=== PATIENT | male | born 1990 | race Caucasian/White ===

== ENCOUNTER 2016-11-21 16:40 | Inpatient (IN) | payer SELFPAY ==
[~2016-11-21] VITALS: Ht 182.9 cm; Wt 120.8 kg
[~2016-11-21 16:40] MED LIST: BUPR-192 PO; CLON-276 PO; CLON0.1T12 PO; DEXT20TA2 PO; DIVA250T4 PO; DIVA500T2 PO; Ibuprofen PO; LAMO25TA5 PO; METH10TA2 PO; Methocarbamol PO; Nicotine TD; OLAN5TAB5 PO; RISP0.5T24 PO
[2016-11-21] MEDS ORDERED: LORazepam 2 MG/ML VIAL IV ONE ×2 (17:15→17:45)
[2016-11-21] MEDS ORDERED: ONDANSETRON PF 4 MG/2 ML VIAL. IV ONE (17:15)
[2016-11-21] MEDS ORDERED: IV NORMAL SALINE 1,000ML 1,000 ML IV ONE (17:15)
--- NOTE | 2016-11-21 17:23 | EKG ---
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
--- NOTE | 2016-11-21 17:23 | PHYS DOC ---
Past History Past Medical History: No Pertinent History Past Surgical History: No Surgical History Smoking: Greater than 1 pack/day Alcohol Use: None Drug Use: Methamphetamine Adult General Chief Complaint Chief Complaint: HEAT EXPOSURE HPI HPI Rakan is a 26-year-old male with a history of polysubstance abuse presenting with altered mental status and palpitations. He states that around 9:30 PM last night he used 1/2 g of either bath salts or meth intravenously as well as 30 mg of methadone at same time and since that time he has had palpitations. He also states that he has been very anxious. He does not have other associated symptoms. He does state that he has been suicidal but he is not currently Review of Systems Review of Systems Constitutional: Denies fever or chills. He is very sweaty Eyes: Denies change in visual acuity, redness, or eye pain [] HENT: Denies nasal congestion or sore throat [] Respiratory: Denies cough or shortness of breath [] Cardiovascular: No additional information not addressed in HPI [] GI: Denies abdominal pain, bloody stools or diarrhea. Mild to moderate nausea/ vomiting : Denies dysuria or hematuria [] Musculoskeletal: Denies back pain or joint pain [] Integument: Denies rash or skin lesions [] Neurologic: Denies headache, focal weakness or sensory changes [] Endocrine: Denies polyuria or polydipsia [] Current Medications Current Medications Current Medications Medications (Trade) Dose Ordered Sig/Loraine Start Time Stop Time Status Last Admin Dose Admin Lorazepam (Ativan) 1 mg 1X ONCE 11/21/16 17:15 11/21/16 17:16 DC 11/21/16 17:08 1 MG Ondansetron HCl (Zofran) 4 mg 1X ONCE 11/21/16 17:15 11/21/16 17:16 DC 11/21/16 17:09 4 MG Sodium Chloride 1,000 ml @ 1,000 mls/hr 1X ONCE 11/21/16 17:15 11/21/16 18:14 11/21/16 17:08 1,000 MLS/HR Allergies Allergies Allergies Coded Allergies Type Severity Reaction Last Updated Verified cortisone Allergy Intermediate 03/21/15 Yes Physical Exam Physical Exam Constitutional: Well developed, well nourished, no acute distress, non-toxic appearance. [] HENT: Normocephalic, atraumatic, bilateral external ears normal, oropharynx moist, no oral exudates, nose normal. [] Eyes: PERRLA, EOMI, conjunctiva normal, no discharge. [] Neck: Normal range of motion, no tenderness, supple, no stridor. [] Cardiovascular:Heart rate regular rhythm, no murmur [] Lungs & Thorax: Bilateral breath sounds clear to auscultation [] Abdomen: Bowel sounds normal, soft, no tenderness, no masses, no pulsatile masses. [] Skin: Warm, dry, no erythema, no rash. [] Back: No tenderness, no CVA tenderness. [] Extremities: No tenderness, no cyanosis, no clubbing, ROM intact, no edema. [] Neurologic: Alert and oriented X 3, normal motor function, normal sensory function, no focal deficits noted. [] Psychologic: Affect normal, judgement normal, mood normal. [] Current Patient Data Lab Results Laboratory Tests Test 11/21/16 17:15 White Blood Count 15.8 x10^3/uL Red Blood Count 5.23 x10^6/uL Hemoglobin 15.5 g/dL Hematocrit 44.5 % Mean Corpuscular Volume 85 fL Mean Corpuscular Hemoglobin 30 pg Mean Corpuscular Hemoglobin Concent 35 g/dL Red Cell Distribution Width 13.0 % Platelet Count 298 x10^3/uL Neutrophils (%) (Auto) 71 % Lymphocytes (%) (Auto) 18 % Monocytes (%) (Auto) 10 % Eosinophils (%) (Auto) 1 % Basophils (%) (Auto) 1 % Neutrophils # (Auto) 11.1 x10^3uL Lymphocytes # (Auto) 2.9 x10^3/uL Monocytes # (Auto) 1.5 x10^3/uL Eosinophils # (Auto) 0.1 x10^3/uL Basophils # (Auto) 0.2 x10^3/uL Platelet Estimate Pending Sodium Level 139 mmol/L Potassium Level 3.1 mmol/L Chloride Level 100 mmol/L Carbon Dioxide Level 22 mmol/L Anion Gap 17 Blood Urea Nitrogen 15 mg/dL Creatinine 2.3 mg/dL Estimated GFR (Cockcroft-Gault) 34.0 BUN/Creatinine Ratio 7 Glucose Level 74 mg/dL Calcium Level 9.9 mg/dL Magnesium Level 1.6 mg/dL Total Bilirubin 0.6 mg/dL Aspartate Amino Transf (AST/SGOT) 59 U/L Alanine Aminotransferase (ALT/SGPT) 37 U/L Alkaline Phosphatase 106 U/L Creatine Kinase 1617 U/L Creatine Kinase MB (Mass) 3.4 ng/mL Creatine Kinase MB Relative Index 0.2 % Troponin I Quantitative < 0.017 ng/mL Total Protein 8.6 g/dL Albumin 4.7 g/dL Albumin/Globulin Ratio 1.2 Current Medications Medications (Trade) Dose Ordered Sig/Loraine Route PRN Reason Start Time Stop Time Status Last Admin Dose Admin Ondansetron HCl (Zofran) 4 mg 1X ONCE IV 11/21/16 17:15 11/21/16 17:16 DC 11/21/16 17:09 Sodium Chloride 1,000 ml @ 1,000 mls/hr 1X ONCE IV 11/21/16 17:15 11/21/16 18:14 DC 11/21/16 17:08 Lorazepam (Ativan) 1 mg 1X ONCE IV 11/21/16 17:15 11/21/16 17:16 DC 11/21/16 17:08 Lorazepam (Ativan) 1 mg 1X ONCE IV 11/21/16 17:45 11/21/16 17:46 DC 11/21/16 17:43 Prochlorperazine Edisylate (Compazine) 10 mg 1X ONCE IV 11/21/16 18:00 11/21/16 18:01 DC 11/21/16 18:00 EKG EKG ECG - sinus tachycardia Radiology/Procedures Radiology/Procedures [] Course & Med Decision Making Course & Med Decision Making Rakan has a history as well as recent polysubstance abuse. He has received 2L NS bolus as well as 2 doses of Ativan 1mg. His anxiety seems to be mildly controlled however his tachycardia is persistent Dragon Disclaimer Dragon Disclaimer This chart was dictated in whole or in part using Voice Recognition software in a busy, high-work load, and often noisy Emergency Department environment. It may contain unintended and wholly unrecognized errors or omissions. Departure Departure: Impression: Primary Impression: Polysubstance abuse Additional Impressions: Tachycardia Rhabdomyolysis Dehydration Acute renal failure Disposition: ADMITTED INPATIENT Condition: STABLE Referrals: CHANDRAKANT GRACE DO (PCP) Problem Qualifiers Additional Impressions: Rhabdomyolysis Rhabdomyolysis type: non-traumatic Qualified Codes: M62.82 - Rhabdomyolysis Acute renal failure Acute renal failure type: unspecified Qualified Codes: N17.9 - Acute kidney failure, unspecified JOSIAS NG MD Nov 21, 2016 17:23
[2016-11-21 17:38] LABS: BASO # 0.2 x10^3/uL (0.0-0.2); BASO % 1 % (0-3); EOS # 0.1 x10^3/uL (0.0-0.7); EOS % 1 % (0-3); HEMATOCRIT 44.5 % (39.0-53.0); HEMOGLOBIN 15.5 g/dL (13.0-17.5); LYMPH # 2.9 x10^3/uL (1.0-4.8); LYMPH % 18 % (24-48); MEAN CORPUSCULAR HEMOGLOBIN 30 pg (25-35); MEAN CORPUSCULAR HGB CONC 35 g/dL (31-37); MEAN CORPUSCULAR VOLUME 85 fL (79-100); MONO # 1.5 x10^3/uL (0.0-1.1); MONO % 10 % (0-9); NEUT # 11.1 x10^3uL (1.8-7.7); NEUT % 71 % (31-73); PLATELET COUNT 298 x10^3/uL (140-400); RED BLOOD COUNT 5.23 x10^6/uL (4.30-5.70); WHITE BLOOD COUNT 15.8 x10^3/uL (4.0-11.0)
[2016-11-21 17:59] LABS: ALBUMIN 4.7 g/dL (3.4-5.0); ALBUMIN/GLOBULIN RATIO 1.2 (1.0-1.7); CALCIUM 9.9 mg/dL (8.5-10.1); CREATININE 2.3 mg/dL (0.7-1.3); MAGNESIUM 1.6 mg/dL (1.8-2.4); POTASSIUM 3.1 mmol/L (3.5-5.1); TOTAL BILIRUBIN 0.6 mg/dL (0.2-1.0); TOTAL PROTEIN 8.6 g/dL (6.4-8.2)
[2016-11-21] MEDS ORDERED: PROCHLORPERAZINE 10 MG/2 ML VIAL. IV ONE (18:00)
[2016-11-21] MEDS ORDERED: POTASSIUM CHLORIDE 20 MEQ TABLET.ER. PO ONE (18:45)
[2016-11-21] MEDS ORDERED: ONDANSETRON PF 4 MG/2 ML VIAL. IV PRN (18:45)
[2016-11-21] MEDS ORDERED: MAGNESIUM SULFATE 1GM 100 ML IV ONE (18:45)
[2016-11-21] MEDS ORDERED: IV NORMAL SALINE 1,000 ML BAG IV ONE (18:45)
[2016-11-21] MEDS ORDERED: LORazepam 2 MG/ML VIAL IV PRN (18:45)
[2016-11-21 19:10] LABS: % LYMPHS 17 % (24-48); % MONOS 11 % (0-10); % SEGS 72 % (35-66)
[2016-11-21 19:11] LABS: PLT ESTIMATE ADEQUATE (ADEQUATE)
[2016-11-21 19:44] VITALS: BP 137/59
[2016-11-21 20:44] VITALS: BP 134/59
[2016-11-21 21:44] VITALS: BP 130/50
[2016-11-21 22:44] VITALS: BP 123/62
[2016-11-21 23:51] VITALS: BP 117/57
[2016-11-22] VITALS (21 sets, daily range): BP systolic 94–138; BP diastolic 50–80
[2016-11-22] MEDS: IV NORMAL SALINE 1,000ML 1,000 ML IV SCH ×5 (00:45→18:41)
--- NOTE | 2016-11-22 02:37 | ACF ---
Admission Criteria Forms MUSCULOSKELETAL DISEASE GRG Clinical Indications for Admission to Inpatient Care (Place 'X' for any and all applicable criteria): Hospital admission is needed for appropriate care of the patient because of 1 or more of the following: [ ]I. Fracture, dislocation, or other musculoskeletal injury requiring inpatient care(medical) as indicated by 1 or more of the following(4)(5)(6)(7) [ ]a) Vertebral fracture requiring observation for instability or neurologic compromise (8) [ ]b) Compartment syndrome (proven or cannot be ruled out during observation level of care) (9) [ ]c) Limb-threatening injury [ ]d) Major injury requiring inpatient stabilization such as traction initiation or external fixation before internal fixation or closure of complex or open fracture [ ]e) Major injury requiring inpatient treatment after emergency or observation level care (as appropriate) [ ]f) Severe pain requiring acute inpatient management [ ]g) Injury with suspicion of abuse or neglect (eg., child, dependent elderly) [ ]II. Newly diagnosed or suspected bone, joint, or orthopedic device infection (e.g., osteomyelitis, septic arthritis) needing 1 or more of the following(1)(2)(3) [ ]a) IV antibiotics that cannot be initiated in other than inpatient setting (e.g., patient too unstable or home infusion not available) [ ]b) Device removal or replacement [ ]c) Bone or soft tissue debridement [ ]d) Joint drainage (drain placement or repetitive aspirations) [ ]III. Severe rheumatologic disease (e.g., systemic lupus erythematosus, rheumatoid arthritis) with complications or comorbidities (Also use Optimal Recovery Care Criteria or General Recovery Criteria as appropriate on the basis of predominant condition), including 1 or more of the following( 10)(11)(12)(13) [ ]a) Severe infection (e.g., [employer]ATE infection, sepsis) (14) [ ]b) Respiratory complications, including 1 or more of the following : [ ]i) Pleural effusion with respiratory compromise [ ]ii) Pulmonary hypertension with congestive failure [ ]iii) Respiratory failure [ ]iv) Pulmonary hemorrhage (15) [ ]c) Hematologic disease, including 1 or more of the following: [ ]i) Coagulopathy with bleeding [ ]ii) Thrombosis with hypercoagulable state [ ]iii) Thrombotic thrombocytopenic purpura [ ]d) Cerebritis with seizures, psychosis, or other severe abnormalities [ ]e) Vertebral destruction with monitoring needed for cervical myelopathy& possible respiratory compromise [ ]f) Exacerbation that requires inpatient treatment (e.g., intravenous immunosuppression) (16) [ ]g) Acute renal failure [ ]h) Cerebritis with seizures, psychosis, Altered mental status, or other neurologic abnormalities [ ]i) Pericardial effusion with tamponade [ ]j) Vertebral destruction, with monitoring needed for cervical myelopathy and possible respiratory compromise [ ]IV. Severe vasculitis with complications or comorbidities (Also use Optimal Recovery Care Criteria General Recovery Criteria as appropriate on the basis of predominant condition), including 1 or more of the following(11)(12)(17)(18)(19)(20) [ ]a) Exacerbation that requires inpatient treatment (e.g., intravenous immunosuppression) (19)(21) [ ]b) Pulmonary hemorrhage (15) [ ]c) [employer]ATE vasculitis with seizures, psychosis, Altered mental status that is severe or persistent, or other severe abnormalities (22) [ ]d) Cerebral infarction [ ]e) Gastrointestinal ischemia [ ]f) Gangrene or threatened amputation [ ]g) Renal failure (16) [ ]h) Other significant complications of vasculitis ( eg., tissue or organ ischemia, organ dysfunction ) [ ]V. Severe myopathy as indicated by 1 or more of the following (28)(29) [ ]a) New onset of airway compromise or inability to swallow [ ]b) Respiratory deterioration with observation needed for impending respiratory failure [ ]c) Exacerbation that requires inpatient treatment (e.g., intravenous immunosuppression) [ ]. Severe crystal gout (arthropathy) indicated by 1 or more of the following (23)(24) [ ]a) Severe pain requiring acute inpatient management [ ]b) Exacerbation that requires inpatient treatment (e.g., intravenous treatment) [X]VII.Rhabdomyolysis and 1 or more of the following (25)(26)(27) [X]a) Acute renal failure [ ]b) Need for intravenous hydration after emergency or observation level care (as appropriate) [ ]c) Inability to maintain oral hydration [X]d) Change in mental status [ ]e) Electrolyte abnormality that remains after emergency or observation level care (as appropriate) [ ]VIII Post amputation complication, as indicated by ANY ONE of the following [ ]a) Infection [ ]b) Dehiscence [ ]c) Myodesis failure [ ]IX. Severe pain requiring acute inpatient management due to musculoskeletal condition [ ]X. Musculoskeletal Disease and ALL of the following: [ ]a) Symptom or finding for which emergency and observation care have failed or are not considered appropriate (Use General Criteria: Observation Care as appropriate) [ ]b) Presence of ANY ONE of the following [ ]i) A General Admission Criteria [ ]ii) A Pediatric General Admission Criteria The original [facility] [employer] content created by [facility] [employer] has been revised. The portions of the content which have been revised are identified through the use of italic text or in bold, and [facility] has neither reviewed nor approved the modified material. All other unmodified content is copyright [facility] [employer]. Please see references footnoted in the original [facility] edition 2016 Admission Criteria Met?: Yes BALTA COX Nov 22, 2016 02:37
[2016-11-22 06:35] LABS: BASO # 0.1 x10^3/uL (0.0-0.2); BASO % 1 % (0-3); EOS # 0.3 x10^3/uL (0.0-0.7); EOS % 5 % (0-3); HEMATOCRIT 43.6 % (39.0-53.0); HEMOGLOBIN 14.9 g/dL (13.0-17.5); LYMPH # 3.1 x10^3/uL (1.0-4.8); LYMPH % 42 % (24-48); MEAN CORPUSCULAR HEMOGLOBIN 30 pg (25-35); MEAN CORPUSCULAR HGB CONC 34 g/dL (31-37); MEAN CORPUSCULAR VOLUME 87 fL (79-100); MONO # 0.7 x10^3/uL (0.0-1.1); MONO % 10 % (0-9); NEUT # 3.2 x10^3uL (1.8-7.7); NEUT % 44 % (31-73); PLATELET COUNT 238 x10^3/uL (140-400); RED BLOOD COUNT 5.03 x10^6/uL (4.30-5.70); WHITE BLOOD COUNT 7.4 x10^3/uL (4.0-11.0)
[2016-11-22 06:45] LABS: CALCIUM 8.8 mg/dL (8.5-10.1); CREATININE 1.1 mg/dL (0.7-1.3); GFR 79.7; POTASSIUM 3.8 mmol/L (3.5-5.1)
[2016-11-22 06:45] LABS: BARBITURATES NEG (NEG); BENZODIAZEPINES NEG (NEG); CANNABINOIDS POS (NEG); COCAINE NEG (NEG); METHADONE POS (NEG); OPIATES NEG (NEG); PHENCYCLIDINE NEG (NEG)
[2016-11-22 06:46] LABS: BILIRUBIN,URINE NEG (NEG); CLARITY,URINE CLEAR; COLOR,URINE AMBER; GLUCOSE,URINE NEG (NEG); UROBILINOGEN,URINE 0.2 mg/dL (0.2 mg/dL)
[2016-11-22 06:47] LABS: AMORPHOUS SEDIMENT,UR PRESENT /HPF; BACTERIA,URINE 0 /HPF (0-FEW); HYALINE CASTS, URINE MANY /HPF; NITRITE,URINE NEG (NEG); RBC,URINE RARE /HPF (0-2)
[2016-11-22 06:53] LABS: AMPHETAMINE/METHAMPHETAMINE POS (NEG)
--- NOTE | 2016-11-22 17:10 | PDOC1 ---
History of Present Illness Reason for Visit: heat exposure History of Present Illness Took 1/2 gram pf bath salts or methamphetamin He also took 30mg of methadone Chief Complaint: HEAT EXPOSURE Allergies: Coded Allergies: cortisone (Verified Allergy, Intermediate, 03/21/15) Past Medical History Cardiac: No pertinent hx Pulmonary: No pertinent hx GI: No pertinent hx Heme/Onc: No pertinent hx Hepatobiliary: No pertinent hx Psych: No pertinent hx Musculoskeletal: No pertinent hx Rheumatologic: Other (aches and pains all over) Renal/: No pertinent hx Endocrine: No pertinent hx Past Surgical History: No pertinent history Family History: No pertinent hx Past Social History Smoke: 2 packs per day Alcohol: none Drugs: None Lives: Alone Review of Systems Review Of Systems Fourteen system , review of systems has been reviewed. See HPI for pertinent positives and negative responses, other ferrara all other systems are negative, non pertinent or non contributory Allergies: Coded Allergies: cortisone (Verified Allergy, Intermediate, 03/21/15) Medications Current Medications Ondansetron HCl (Zofran) 4 mg 1X ONCE IV Last administered on 11/21/16 17:09 ; Start 11/21/16 at 17:15; Stop 11/21/16 at 17:16; Status DC Sodium Chloride 1,000 ml @ 1,000 mls/hr 1X ONCE IV Last administered on 17:08; Start 11/21/16 at 17:15; Stop 11/21/16 at 18:14; Status DC Lorazepam (Ativan) 1 mg 1X ONCE IV Last administered on 11/21/16 17:08; Start 11/21/16 at 17:15; Stop 11/21/16 at 17:16; Status DC Lorazepam (Ativan) 1 mg 1X ONCE IV Last administered on 11/21/16 17:43; Start 11/21/16 at 17:45; Stop 11/21/16 at 17:46; Status DC Prochlorperazine Edisylate (Compazine) 10 mg 1X ONCE IV Last administered on 18:00; Start 11/21/16 at 18:00; Stop 11/21/16 at 18:01; Status DC Potassium Chloride (Klor-Con) 40 meq 1X ONCE PO Last administered on 18:45; Start 11/21/16 at 18:45; Stop 11/21/16 at 18:46; Status DC Magnesium Sulfate/ Dextrose 100 ml @ 100 mls/hr 1X ONCE IV Last administered on 11/21/16 18:45; Start 11/21/16 at 18:45; Stop 11/21/16 at 19:47; Status DC Sodium Chloride (Iv Sodium Chloride 0.9% 1,000ml) 1,000 ml 1X ONCE IV Last administered on 11/21/16 18:45; Start 11/21/16 at 18:45; Stop 11/21/16 at 18:46 ; Status DC Ondansetron HCl (Zofran) 4 mg PRN Q4HRS PRN IV NAUSEA/VOMITING; Start 11/21/16 at 18:45; Stop 11/22/16 at 18:44 Sodium Chloride 1,000 ml @ 150 mls/hr Q6H40M IV Last administered on 12:47; Start 11/21/16 at 18:31; Stop 11/22/16 at 18:30 Lorazepam (Ativan) 0.5 mg PRN Q4HRS PRN IV aggitation; Start 11/21/16 at 18:45 Active Scripts Active Reported Lamictal (Lamotrigine) 25 Mg Tablet Unknown Dose PO BID Methadone Hcl 10 Mg Tablet 2 Tab PO BID Depakote (Divalproex Sodium) 500 Mg Tablet.dr 1 Tab PO TID 0 Days Exam Vital Signs Vital Signs Date Time Temp Pulse Resp B/P (MAP) Pulse Ox O2 Delivery O2 Flow Rate FiO2 11/22/16 16:01 98.3 11/22/16 14:45 68 20 107/52 (70) 98 Room Air 11/21/16 22:44 2.0 General Appearance: Alert, Oriented X3, Cooperative, No acute distress HEENT: Atraumatic, PERRLA, EOMI Respiratory: Clear to auscultation, Normal air movement Heart: Regular rate, Normal S1, Normal S2, No murmurs, Rubs Abdominal: Normal bowel sounds, No tenderness Extremities: No cyanosis, No edema, No tenderness/swelling Skin: No rashes, No breakdown Neuro: Normal gait, Normal speech, Other (altered mental status) Assessment/Plan Assessment/Plan Heat exposure Salt bath vs meth methadone COURSE Allergies Coded Allergies Type Severity Reaction Last Updated Verified cortisone Allergy Intermediate 03/21/15 Yes Laboratory Tests Test 11/21/16 17:15 11/22/16 05:30 11/22/16 05:36 White Blood Count 15.8 x10^3/uL (4.0-11.0) 7.4 x10^3/uL (4.0-11.0) Red Blood Count 5.23 x10^6/uL (4.30-5.70) 5.03 x10^6/uL (4.30-5.70) Hemoglobin 15.5 g/dL (13.0-17.5) 14.9 g/dL (13.0-17.5) Hematocrit 44.5 % (39.0-53.0) 43.6 % (39.0-53.0) Mean Corpuscular Volume 85 fL (79-100) 87 fL (79-100) Mean Corpuscular Hemoglobin 30 pg (25-35) 30 pg (25-35) Mean Corpuscular Hemoglobin Concent 35 g/dL (31-37) 34 g/dL (31-37) Red Cell Distribution Width 13.0 % (11.5-14.5) 13.0 % (11.5-14.5) Platelet Count 298 x10^3/uL (140-400) 238 x10^3/uL (140-400) Neutrophils (%) (Auto) 71 % (31-73) 44 % (31-73) Lymphocytes (%) (Auto) 18 % (24-48) 42 % (24-48) Monocytes (%) (Auto) 10 % (0-9) 10 % (0-9) Eosinophils (%) (Auto) 1 % (0-3) 5 % (0-3) Basophils (%) (Auto) 1 % (0-3) 1 % (0-3) Neutrophils # (Auto) 11.1 x10^3uL (1.8-7.7) 3.2 x10^3uL (1.8-7.7) Lymphocytes # (Auto) 2.9 x10^3/uL (1.0-4.8) 3.1 x10^3/uL (1.0-4.8) Monocytes # (Auto) 1.5 x10^3/uL (0.0-1.1) 0.7 x10^3/uL (0.0-1.1) Eosinophils # (Auto) 0.1 x10^3/uL (0.0-0.7) 0.3 x10^3/uL (0.0-0.7) Basophils # (Auto) 0.2 x10^3/uL (0.0-0.2) 0.1 x10^3/uL (0.0-0.2) Segmented Neutrophils % 72 % (35-66) Lymphocytes % 17 % (24-48) Monocytes % 11 % (0-10) Platelet Estimate Adequate (ADEQUATE) Sodium Level 139 mmol/L (136-145) 142 mmol/L (136-145) Potassium Level 3.1 mmol/L (3.5-5.1) 3.8 mmol/L (3.5-5.1) Chloride Level 100 mmol/L (98-107) 106 mmol/L (98-107) Carbon Dioxide Level 22 mmol/L (21-32) 25 mmol/L (21-32) Anion Gap 17 (6-14) 11 (6-14) Blood Urea Nitrogen 15 mg/dL (8-26) 12 mg/dL (8-26) Creatinine 2.3 mg/dL (0.7-1.3) 1.1 mg/dL (0.7-1.3) Estimated GFR (Cockcroft-Gault) 34.0 79.7 BUN/Creatinine Ratio 7 (6-20) Glucose Level 74 mg/dL (70-99) 75 mg/dL (70-99) Calcium Level 9.9 mg/dL (8.5-10.1) 8.8 mg/dL (8.5-10.1) Magnesium Level 1.6 mg/dL (1.8-2.4) Total Bilirubin 0.6 mg/dL (0.2-1.0) Aspartate Amino Transf (AST/SGOT) 59 U/L (15-37) Alanine Aminotransferase (ALT/SGPT) 37 U/L (16-63) Alkaline Phosphatase 106 U/L (46-116) Creatine Kinase 1617 U/L (39-308) 1083 U/L (39-308) Creatine Kinase MB (Mass) 3.4 ng/mL (0.0-3.6) Creatine Kinase MB Relative Index 0.2 % (0-4) Troponin I Quantitative < 0.017 ng/mL (0-0.055) Total Protein 8.6 g/dL (6.4-8.2) Albumin 4.7 g/dL (3.4-5.0) Albumin/Globulin Ratio 1.2 (1.0-1.7) Urine Collection Type Unknown Urine Color Natalya Urine Clarity Clear Urine pH 5.5 Urine Specific [place] >=1.030 Urine Protein 30 mg/dl (NEG-TRACE) Urine Glucose (UA) Neg mg/dL (NEG) Urine Ketones (Stick) 15 mg/dL (NEG) Urine Blood Neg (NEG) Urine Nitrite Neg (NEG) Urine Bilirubin Neg (NEG) Urine Urobilinogen Dipstick 0.2 mg/dL (0.2 mg/dL) Urine Leukocyte Esterase Neg (NEG) Urine RBC Rare /HPF (0-2) Urine WBC 1-4 /HPF (0-4) Urine Squamous Epithelial Cells None /LPF Urine Amorphous Sediment Present /HPF Urine Bacteria 0 /HPF (0-FEW) Urine Hyaline Casts Many /HPF Urine Mucus Mod /LPF Urine Opiates Screen Neg (NEG) Urine Methadone Screen Pos (NEG) Urine Barbiturates Neg (NEG) Urine Phencyclidine Screen Neg (NEG) Urine Amphetamine/Methamphetamine Pos (NEG) Urine Benzodiazepines Screen Neg (NEG) Urine Cocaine Screen Neg (NEG) Urine Cannabinoids Screen Pos (NEG) Urine Ethyl Alcohol Neg (NEG) Current Medications Medications (Trade) Dose Ordered Sig/Loraine Route PRN Reason Start Time Stop Time Status Last Admin Dose Admin Ondansetron HCl (Zofran) 4 mg 1X ONCE IV 11/21/16 17:15 11/21/16 17:16 DC 11/21/16 17:09 Sodium Chloride 1,000 ml @ 1,000 mls/hr 1X ONCE IV 11/21/16 17:15 11/21/16 18:14 DC 11/21/16 17:08 Lorazepam (Ativan) 1 mg 1X ONCE IV 11/21/16 17:15 11/21/16 17:16 DC 11/21/16 17:08 Lorazepam (Ativan) 1 mg 1X ONCE IV 11/21/16 17:45 11/21/16 17:46 DC 11/21/16 17:43 Prochlorperazine Edisylate (Compazine) 10 mg 1X ONCE IV 11/21/16 18:00 11/21/16 18:01 DC 11/21/16 18:00 Potassium Chloride (Klor-Con) 40 meq 1X ONCE PO 11/21/16 18:45 11/21/16 18:46 DC 11/21/16 18:45 Magnesium Sulfate/ Dextrose 100 ml @ 100 mls/hr 1X ONCE IV 11/21/16 18:45 11/21/16 19:47 DC 11/21/16 18:45 Sodium Chloride (Iv Sodium Chloride 0.9% 1,000ml) 1,000 ml 1X ONCE IV 11/21/16 18:45 11/21/16 18:46 DC 11/21/16 18:45 Ondansetron HCl (Zofran) 4 mg PRN Q4HRS PRN IV NAUSEA/VOMITING 11/21/16 18:45 11/22/16 18:44 Sodium Chloride 1,000 ml @ 150 mls/hr Q6H40M IV 11/21/16 18:31 11/22/16 18:30 11/22/16 12:47 Lorazepam (Ativan) 0.5 mg PRN Q4HRS PRN IV aggitation 11/21/16 18:45 I & O 11/22/16 00:00 Intake Total 0 ml Balance 0 ml Orders Procedure Category Date Status Time Vital Signs ER 11/21/16 Transmitted 17:18 Bp Monitoring ER 11/21/16 Transmitted 17:18 Credentialing Manager ER 11/21/16 Transmitted 17:18 Temperature Monitoring ER 11/21/16 Transmitted 17:18 Cbc W [employer] LAB 11/21/16 Complete 17:18 Ua, Cult If Indicated LAB 11/21/16 Complete 17:18 Drugs Of Abuse Ur LAB 11/21/16 Complete 17:18 12 Lead Ekg EKG 11/21/16 Complete 17:18 Ckmb Isoenzymes LAB 11/21/16 Complete 17:18 Troponin I LAB 11/21/16 Complete 17:18 Magnesium LAB 11/21/16 Complete 17:18 Comprehensive LAB 11/21/16 Complete Metabolic Panel 17:18 Lorazepam (Ativan) PHA 11/21/16 Complete 17:45 Manual Differential LAB 11/21/16 Complete 17:15 Prochlorperazine PHA 11/21/16 Complete (Compazine) 18:00 Potassium Chloride PHA 11/21/16 Complete (Klor-Con) 18:45 Magnesium Sulfate 1gm PHA 11/21/16 Complete (Magnesium Sulfate 18:45 Iv Normal Saline PHA 11/21/16 Complete 1,000ml (Iv Sodium 18:45 Ed Bridge Order ADT 11/21/16 Transmitted 18:31 Code Status CODE 11/21/16 Transmitted 18:31 Vital Signs, Per LEENA 11/21/16 In Process Protocol 18:31 Regular DIET 11/22/16 Transmitted Breakfast Ambulate Ad Eboni LEENA 11/21/16 In Process 18:31 Fall Precautions LEENA 11/21/16 In Process 18:31 Cbc W [employer]od[employer] LAB 11/22/16 Complete 06:00 Basic Metabolic Panel LAB 11/22/16 Complete 06:00 Ondansetron Pf PHA 11/21/16 In Process (Zofran) 18:45 Iv Normal Saline PHA 11/21/16 In Process 1,000ml (Iv Sodium 18:31 Lorazepam (Ativan) PHA 11/21/16 In Process 18:45 Apply Ulisses Stockings LEENA 11/21/16 In Process And Jc Wr 19:14 Pneumatic Compression LEENA 11/21/16 In Process Device 19:14 Mrsa By Pcr LAB 11/21/16 In Process 19:24 Admit Orders ADT 11/21/16 Transmitted Case Management CM1 11/21/16 Transmitted Referral Creatine Kinase LAB 11/22/16 Complete 06:58 Hemogram LAB 11/23/16 Verified 05:00 Comprehensive LAB 11/23/16 Verified Metabolic Panel 05:00 Creatine Kinase LAB 11/23/16 Verified 05:00 Vital Signs Date Time Temp Pulse Resp B/P (MAP) Pulse Ox O2 Delivery O2 Flow Rate FiO2 11/22/16 16:01 98.3 11/22/16 14:45 68 20 107/52 (70) 98 Room Air 11/21/16 22:44 2.0 GILBERT LOPEZ MD Nov 22, 2016 17:10
--- NOTE | 2016-11-22 17:16 | PDOC ---
SUBJECTIVE: sleeping most of the day did c/o aches and pains all over OBJECTIVE: Problems: Problems Medical Problems: (1) Acute renal failure Status: Acute (2) Dehydration Status: Acute (3) Polysubstance abuse Status: Acute (4) Rhabdomyolysis Status: Acute (5) Tachycardia Status: Acute Resting flat in NAD Slept most of the day still c/o generalized aches and pain Vital Signs: Vital Signs Date Time Temp Pulse Resp B/P (MAP) Pulse Ox O2 Delivery O2 Flow Rate FiO2 11/22/16 16:01 98.3 11/22/16 14:45 68 20 107/52 (70) 98 Room Air 11/21/16 22:44 2.0 I & O Intake and Output 11/22/16 07:00 Intake Total 2003 ml Output Total 450 ml Balance 1553 ml Intake Oral 420 ml IV Total 1583 ml Output Urine Total 450 ml Labs: Laboratory Tests Test 11/21/16 17:15 11/22/16 05:30 11/22/16 05:36 White Blood Count 15.8 x10^3/uL (4.0-11.0) 7.4 x10^3/uL (4.0-11.0) Red Blood Count 5.23 x10^6/uL (4.30-5.70) 5.03 x10^6/uL (4.30-5.70) Hemoglobin 15.5 g/dL (13.0-17.5) 14.9 g/dL (13.0-17.5) Hematocrit 44.5 % (39.0-53.0) 43.6 % (39.0-53.0) Mean Corpuscular Volume 85 fL (79-100) 87 fL (79-100) Mean Corpuscular Hemoglobin 30 pg (25-35) 30 pg (25-35) Mean Corpuscular Hemoglobin Concent 35 g/dL (31-37) 34 g/dL (31-37) Red Cell Distribution Width 13.0 % (11.5-14.5) 13.0 % (11.5-14.5) Platelet Count 298 x10^3/uL (140-400) 238 x10^3/uL (140-400) Neutrophils (%) (Auto) 71 % (31-73) 44 % (31-73) Lymphocytes (%) (Auto) 18 % (24-48) 42 % (24-48) Monocytes (%) (Auto) 10 % (0-9) 10 % (0-9) Eosinophils (%) (Auto) 1 % (0-3) 5 % (0-3) Basophils (%) (Auto) 1 % (0-3) 1 % (0-3) Neutrophils # (Auto) 11.1 x10^3uL (1.8-7.7) 3.2 x10^3uL (1.8-7.7) Lymphocytes # (Auto) 2.9 x10^3/uL (1.0-4.8) 3.1 x10^3/uL (1.0-4.8) Monocytes # (Auto) 1.5 x10^3/uL (0.0-1.1) 0.7 x10^3/uL (0.0-1.1) Eosinophils # (Auto) 0.1 x10^3/uL (0.0-0.7) 0.3 x10^3/uL (0.0-0.7) Basophils # (Auto) 0.2 x10^3/uL (0.0-0.2) 0.1 x10^3/uL (0.0-0.2) Segmented Neutrophils % 72 % (35-66) Lymphocytes % 17 % (24-48) Monocytes % 11 % (0-10) Platelet Estimate Adequate (ADEQUATE) Sodium Level 139 mmol/L (136-145) 142 mmol/L (136-145) Potassium Level 3.1 mmol/L (3.5-5.1) 3.8 mmol/L (3.5-5.1) Chloride Level 100 mmol/L (98-107) 106 mmol/L (98-107) Carbon Dioxide Level 22 mmol/L (21-32) 25 mmol/L (21-32) Anion Gap 17 (6-14) 11 (6-14) Blood Urea Nitrogen 15 mg/dL (8-26) 12 mg/dL (8-26) Creatinine 2.3 mg/dL (0.7-1.3) 1.1 mg/dL (0.7-1.3) Estimated GFR (Cockcroft-Gault) 34.0 79.7 BUN/Creatinine Ratio 7 (6-20) Glucose Level 74 mg/dL (70-99) 75 mg/dL (70-99) Calcium Level 9.9 mg/dL (8.5-10.1) 8.8 mg/dL (8.5-10.1) Magnesium Level 1.6 mg/dL (1.8-2.4) Total Bilirubin 0.6 mg/dL (0.2-1.0) Aspartate Amino Transf (AST/SGOT) 59 U/L (15-37) Alanine Aminotransferase (ALT/SGPT) 37 U/L (16-63) Alkaline Phosphatase 106 U/L (46-116) Creatine Kinase 1617 U/L (39-308) 1083 U/L (39-308) Creatine Kinase MB (Mass) 3.4 ng/mL (0.0-3.6) Creatine Kinase MB Relative Index 0.2 % (0-4) Troponin I Quantitative < 0.017 ng/mL (0-0.055) Total Protein 8.6 g/dL (6.4-8.2) Albumin 4.7 g/dL (3.4-5.0) Albumin/Globulin Ratio 1.2 (1.0-1.7) Urine Collection Type Unknown Urine Color Natalya Urine Clarity Clear Urine pH 5.5 Urine Specific [place] >=1.030 Urine Protein 30 mg/dl (NEG-TRACE) Urine Glucose (UA) Neg mg/dL (NEG) Urine Ketones (Stick) 15 mg/dL (NEG) Urine Blood Neg (NEG) Urine Nitrite Neg (NEG) Urine Bilirubin Neg (NEG) Urine Urobilinogen Dipstick 0.2 mg/dL (0.2 mg/dL) Urine Leukocyte Esterase Neg (NEG) Urine RBC Rare /HPF (0-2) Urine WBC 1-4 /HPF (0-4) Urine Squamous Epithelial Cells None /LPF Urine Amorphous Sediment Present /HPF Urine Bacteria 0 /HPF (0-FEW) Urine Hyaline Casts Many /HPF Urine Mucus Mod /LPF Urine Opiates Screen Neg (NEG) Urine Methadone Screen Pos (NEG) Urine Barbiturates Neg (NEG) Urine Phencyclidine Screen Neg (NEG) Urine Amphetamine/Methamphetamine Pos (NEG) Urine Benzodiazepines Screen Neg (NEG) Urine Cocaine Screen Neg (NEG) Urine Cannabinoids Screen Pos (NEG) Urine Ethyl Alcohol Neg (NEG) Physical Exam: Vitals stable HEENT NC/AT CVS S1 & S2 normal Chest CTA 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
[2016-11-22] MEDS: NICOTINE 21MG PATCH. TD SCH (17:25)
[2016-11-22] MEDS: LORazepam 2 MG/ML VIAL IV PRN ×3 (17:25→21:20)
[2016-11-22] MEDS ORDERED: DIVA500T2 PO (17:44)
[2016-11-22] MEDS ORDERED: LAMO25TA5 PO (17:44)
[2016-11-22] MEDS ORDERED: RISP2TAB3 PO (17:44)
[2016-11-22] MEDS ORDERED: DIVA500T4 PO (17:44)
[2016-11-22] MEDS ORDERED: LORazepam 2 MG/ML VIAL IV PRN (18:15)
[2016-11-22] MEDS ORDERED: DIVALPROEX SODIUM 250 MG TABLET.DR. PO SCH (21:00)
[2016-11-22] MEDS: risperiDONE 2 MG TABLET. PO SCH (21:05)
[2016-11-22] MEDS ORDERED: ONDANSETRON PF 4 MG/2 ML VIAL. ONE (21:07)
[2016-11-23] VITALS (9 sets, daily range): BP systolic 84–129; BP diastolic 48–64
[2016-11-23] MEDS: IV NORMAL SALINE 1,000ML 1,000 ML IV SCH ×2 (02:33→07:44)
[2016-11-23] MEDS ORDERED: ONDANSETRON PF 4 MG/2 ML VIAL. IV PRN (02:45)
[2016-11-23] MEDS: LORazepam 2 MG/ML VIAL IV PRN (02:53)
[2016-11-23 06:31] LABS: BASO # 0.1 x10^3/uL (0.0-0.2); BASO % 1 % (0-3); EOS # 0.3 x10^3/uL (0.0-0.7); EOS % 3 % (0-3); HEMATOCRIT 39.1 % (39.0-53.0); HEMOGLOBIN 13.3 g/dL (13.0-17.5); LYMPH # 2.4 x10^3/uL (1.0-4.8); LYMPH % 28 % (24-48); MEAN CORPUSCULAR HEMOGLOBIN 30 pg (25-35); MEAN CORPUSCULAR HGB CONC 34 g/dL (31-37); MEAN CORPUSCULAR VOLUME 87 fL (79-100); MONO # 0.6 x10^3/uL (0.0-1.1); MONO % 7 % (0-9); NEUT # 5.3 x10^3uL (1.8-7.7); NEUT % 61 % (31-73); PLATELET COUNT 189 x10^3/uL (140-400); RED BLOOD COUNT 4.49 x10^6/uL (4.30-5.70); RED CELL DISTRIBUTION WIDTH 12.9 % (11.5-14.5); WHITE BLOOD COUNT 8.6 x10^3/uL (4.0-11.0)
[2016-11-23 06:46] LABS: ALBUMIN 2.9 g/dL (3.4-5.0); ALBUMIN/GLOBULIN RATIO 0.9 (1.0-1.7); CALCIUM 8.1 mg/dL (8.5-10.1); CREATININE 0.8 mg/dL (0.7-1.3); GFR 115.1; POTASSIUM 3.7 mmol/L (3.5-5.1); TOTAL BILIRUBIN 0.3 mg/dL (0.2-1.0)
[2016-11-23] MEDS: risperiDONE 2 MG TABLET. PO SCH (08:46)
[2016-11-23] MEDS: NICOTINE 21MG PATCH. TD SCH (08:46)
[2016-11-23] MEDS ORDERED: DIVALPROEX ER 500 MG TAB.ER.24H PO SCH (09:00)
--- NOTE | 2016-11-23 14:58 | PDOC3 ---
Discharge Summary Visit Information Date of Admission: Nov 21, 2016 Date of Discharge: Nov 23, 2016 Admitting Diagnosis: Dehydration MODESTO, RHABDOMYLYSIS Admitting Diagnosis Comments Polysubstance abuse Rhabdomyolysis MODESTO Hypokalemia Final Diagnosis Problems Medical Problems: (1) Acute renal failure Status: Acute (2) Dehydration Status: Acute (3) Polysubstance abuse Status: Acute (4) Rhabdomyolysis Status: Acute (5) Tachycardia Status: Acute Problems: Brief Hospital Course Allergies Allergies Coded Allergies Type Severity Reaction Last Updated Verified cortisone Allergy Intermediate 03/21/15 Yes Vital Signs Vital Signs Date Time Temp Pulse Resp B/P (MAP) Pulse Ox O2 Delivery O2 Flow Rate FiO2 11/23/16 08:55 Room Air 11/23/16 08:45 78 20 129/58 (81) 11/23/16 05:00 98.1 98 11/21/16 22:44 2.0 Lab Results Laboratory Tests Test 11/21/16 17:15 11/21/16 19:50 11/22/16 05:30 11/22/16 05:36 White Blood Count 15.8 x10^3/uL (4.0-11.0) 7.4 x10^3/uL (4.0-11.0) Red Blood Count 5.23 x10^6/uL (4.30-5.70) 5.03 x10^6/uL (4.30-5.70) Hemoglobin 15.5 g/dL (13.0-17.5) 14.9 g/dL (13.0-17.5) Hematocrit 44.5 % (39.0-53.0) 43.6 % (39.0-53.0) Mean Corpuscular Volume 85 fL (79-100) 87 fL (79-100) Mean Corpuscular Hemoglobin 30 pg (25-35) 30 pg (25-35) Mean Corpuscular Hemoglobin Concent 35 g/dL (31-37) 34 g/dL (31-37) Red Cell Distribution Width 13.0 % (11.5-14.5) 13.0 % (11.5-14.5) Platelet Count 298 x10^3/uL (140-400) 238 x10^3/uL (140-400) Neutrophils (%) (Auto) 71 % (31-73) 44 % (31-73) Lymphocytes (%) (Auto) 18 % (24-48) 42 % (24-48) Monocytes (%) (Auto) 10 % (0-9) 10 % (0-9) Eosinophils (%) (Auto) 1 % (0-3) 5 % (0-3) Basophils (%) (Auto) 1 % (0-3) 1 % (0-3) Neutrophils # (Auto) 11.1 x10^3uL (1.8-7.7) 3.2 x10^3uL (1.8-7.7) Lymphocytes # (Auto) 2.9 x10^3/uL (1.0-4.8) 3.1 x10^3/uL (1.0-4.8) Monocytes # (Auto) 1.5 x10^3/uL (0.0-1.1) 0.7 x10^3/uL (0.0-1.1) Eosinophils # (Auto) 0.1 x10^3/uL (0.0-0.7) 0.3 x10^3/uL (0.0-0.7) Basophils # (Auto) 0.2 x10^3/uL (0.0-0.2) 0.1 x10^3/uL (0.0-0.2) Segmented Neutrophils % 72 % (35-66) Lymphocytes % 17 % (24-48) Monocytes % 11 % (0-10) Platelet Estimate Adequate (ADEQUATE) Sodium Level 139 mmol/L (136-145) 142 mmol/L (136-145) Potassium Level 3.1 mmol/L (3.5-5.1) 3.8 mmol/L (3.5-5.1) Chloride Level 100 mmol/L (98-107) 106 mmol/L (98-107) Carbon Dioxide Level 22 mmol/L (21-32) 25 mmol/L (21-32) Anion Gap 17 (6-14) 11 (6-14) Blood Urea Nitrogen 15 mg/dL (8-26) 12 mg/dL (8-26) Creatinine 2.3 mg/dL (0.7-1.3) 1.1 mg/dL (0.7-1.3) Estimated GFR (Cockcroft-Gault) 34.0 79.7 BUN/Creatinine Ratio 7 (6-20) Glucose Level 74 mg/dL (70-99) 75 mg/dL (70-99) Calcium Level 9.9 mg/dL (8.5-10.1) 8.8 mg/dL (8.5-10.1) Magnesium Level 1.6 mg/dL (1.8-2.4) Total Bilirubin 0.6 mg/dL (0.2-1.0) Aspartate Amino Transf (AST/SGOT) 59 U/L (15-37) Alanine Aminotransferase (ALT/SGPT) 37 U/L (16-63) Alkaline Phosphatase 106 U/L (46-116) Creatine Kinase 1617 U/L (39-308) 1083 U/L (39-308) Creatine Kinase MB (Mass) 3.4 ng/mL (0.0-3.6) Creatine Kinase MB Relative Index 0.2 % (0-4) Troponin I Quantitative < 0.017 ng/mL (0-0.055) Total Protein 8.6 g/dL (6.4-8.2) Albumin 4.7 g/dL (3.4-5.0) Albumin/Globulin Ratio 1.2 (1.0-1.7) Nasal Screen MRSA (PCR) Negative (Negative) Urine Collection Type Unknown Urine Color Natalya Urine Clarity Clear Urine pH 5.5 Urine Specific [place] >=1.030 Urine Protein 30 mg/dl (NEG-TRACE) Urine Glucose (UA) Neg mg/dL (NEG) Urine Ketones (Stick) 15 mg/dL (NEG) Urine Blood Neg (NEG) Urine Nitrite Neg (NEG) Urine Bilirubin Neg (NEG) Urine Urobilinogen Dipstick 0.2 mg/dL (0.2 mg/dL) Urine Leukocyte Esterase Neg (NEG) Urine RBC Rare /HPF (0-2) Urine WBC 1-4 /HPF (0-4) Urine Squamous Epithelial Cells None /LPF Urine Amorphous Sediment Present /HPF Urine Bacteria 0 /HPF (0-FEW) Urine Hyaline Casts Many /HPF Urine Mucus Mod /LPF Urine Opiates Screen Neg (NEG) Urine Methadone Screen Pos (NEG) Urine Barbiturates Neg (NEG) Urine Phencyclidine Screen Neg (NEG) Urine Amphetamine/Methamphetamine Pos (NEG) Urine Benzodiazepines Screen Neg (NEG) Urine Cocaine Screen Neg (NEG) Urine Cannabinoids Screen Pos (NEG) Urine Ethyl Alcohol Neg (NEG) Test 11/23/16 05:34 White Blood Count 8.6 x10^3/uL (4.0-11.0) Red Blood Count 4.49 x10^6/uL (4.30-5.70) Hemoglobin 13.3 g/dL (13.0-17.5) Hematocrit 39.1 % (39.0-53.0) Mean Corpuscular Volume 87 fL (79-100) Mean Corpuscular Hemoglobin 30 pg (25-35) Mean Corpuscular Hemoglobin Concent 34 g/dL (31-37) Red Cell Distribution Width 12.9 % (11.5-14.5) Platelet Count 189 x10^3/uL (140-400) Neutrophils (%) (Auto) 61 % (31-73) Lymphocytes (%) (Auto) 28 % (24-48) Monocytes (%) (Auto) 7 % (0-9) Eosinophils (%) (Auto) 3 % (0-3) Basophils (%) (Auto) 1 % (0-3) Neutrophils # (Auto) 5.3 x10^3uL (1.8-7.7) Lymphocytes # (Auto) 2.4 x10^3/uL (1.0-4.8) Monocytes # (Auto) 0.6 x10^3/uL (0.0-1.1) Eosinophils # (Auto) 0.3 x10^3/uL (0.0-0.7) Basophils # (Auto) 0.1 x10^3/uL (0.0-0.2) Sodium Level 144 mmol/L (136-145) Potassium Level 3.7 mmol/L (3.5-5.1) Chloride Level 109 mmol/L (98-107) Carbon Dioxide Level 27 mmol/L (21-32) Anion Gap 8 (6-14) Blood Urea Nitrogen 11 mg/dL (8-26) Creatinine 0.8 mg/dL (0.7-1.3) Estimated GFR (Cockcroft-Gault) 115.1 BUN/Creatinine Ratio 14 (6-20) Glucose Level 105 mg/dL (70-99) Calcium Level 8.1 mg/dL (8.5-10.1) Magnesium Level 1.9 mg/dL (1.8-2.4) Total Bilirubin 0.3 mg/dL (0.2-1.0) Aspartate Amino Transf (AST/SGOT) 34 U/L (15-37) Alanine Aminotransferase (ALT/SGPT) 28 U/L (16-63) Alkaline Phosphatase 77 U/L (46-116) Creatine Kinase 609 U/L (39-308) Total Protein 6.0 g/dL (6.4-8.2) Albumin 2.9 g/dL (3.4-5.0) Albumin/Globulin Ratio 0.9 (1.0-1.7) Brief Hospital Course Mr. Levy is a 26 old who presented after injecting half a gram bath salt vs amphetamine and taking 30 mg of methadone He was found to hypokalemic , dehydrated with MODESTO and elevated CK He was treated aggressively with I V Fluids and his potassium was replaced All his labs have normalized or alomost normalized and he was discharged home to continue on his home medications Discharge Information Condition at Discharge: Improved Follow Up: As Needed Disposition/Orders: D/C to Home Dischare Medications Current Medications Ondansetron HCl (Zofran) 4 mg 1X ONCE IV Last administered on 11/21/16 17:09 ; Start 11/21/16 at 17:15; Stop 11/21/16 at 17:16; Status DC Sodium Chloride 1,000 ml @ 1,000 mls/hr 1X ONCE IV Last administered on 17:08; Start 11/21/16 at 17:15; Stop 11/21/16 at 18:14; Status DC Lorazepam (Ativan) 1 mg 1X ONCE IV Last administered on 11/21/16 17:08; Start 11/21/16 at 17:15; Stop 11/21/16 at 17:16; Status DC Lorazepam (Ativan) 1 mg 1X ONCE IV Last administered on 11/21/16 17:43; Start 11/21/16 at 17:45; Stop 11/21/16 at 17:46; Status DC Prochlorperazine Edisylate (Compazine) 10 mg 1X ONCE IV Last administered on 18:00; Start 11/21/16 at 18:00; Stop 11/21/16 at 18:01; Status DC Potassium Chloride (Klor-Con) 40 meq 1X ONCE PO Last administered on 18:45; Start 11/21/16 at 18:45; Stop 11/21/16 at 18:46; Status DC Magnesium Sulfate/ Dextrose 100 ml @ 100 mls/hr 1X ONCE IV Last administered on 11/21/16 18:45; Start 11/21/16 at 18:45; Stop 11/21/16 at 19:47; Status DC Sodium Chloride (Iv Sodium Chloride 0.9% 1,000ml) 1,000 ml 1X ONCE IV Last administered on 11/21/16 18:45; Start 11/21/16 at 18:45; Stop 11/21/16 at 18:46 ; Status DC Ondansetron HCl (Zofran) 4 mg PRN Q4HRS PRN IV NAUSEA/VOMITING; Start 11/21/16 at 18:45; Stop 11/22/16 at 18:44; Status DC Sodium Chloride 1,000 ml @ 150 mls/hr Q6H40M IV Last administered on 18:41; Start 11/21/16 at 18:31; Stop 11/22/16 at 18:30; Status DC Lorazepam (Ativan) 0.5 mg PRN Q4HRS PRN IV aggitation; Start 11/21/16 at 18:45 ; Stop 11/22/16 at 17:21; Status DC Nicotine (Nicoderm Cq 21mg) 1 patch DAILY TD Last administered on 11/23/16 08: 46; Start 11/22/16 at 17:20; Stop 11/23/16 at 10:47; Status DC Lorazepam (Ativan) 2 mg PRN Q2HR PRN IV ANXIETY / AGITATION Last administered on 11/22/16 18:24; Start 11/22/16 at 17:15; Stop 11/23/16 at 10:47; Status DC Divalproex Sodium (Depakote Er) 500 mg DAILY PO Last administered on 11/23/16 09:18; Start 11/23/16 at 09:00; Stop 11/23/16 at 10:47; Status DC Risperidone (RisperDAL) 2 mg BID PO Last administered on 11/23/16 08:46; Start 11/22/16 at 21:00; Stop 11/23/16 at 10:47; Status DC Divalproex Sodium (Depakote) 500 mg HS PO Last administered on 11/22/16 21:05 ; Start 11/22/16 at 21:00; Stop 11/23/16 at 10:47; Status DC Lorazepam (Ativan) 4 mg PRN Q4HRS PRN IV ANXIETY / AGITATION; Start 11/22/16 at 18:15; Stop 11/22/16 at 18:15; Status DC Lorazepam (Ativan) 4 mg PRN Q2HR PRN IV ANXIETY / AGITATION Last administered on 11/23/16 02:53; Start 11/22/16 at 18:15; Stop 11/23/16 at 10:47; Status DC Sodium Chloride 1,000 ml @ 150 mls/hr Q6H40M IV Last administered on 02:33; Start 11/23/16 at 00:00; Stop 11/23/16 at 10:47; Status DC Ondansetron HCl (Zofran) 4 mg STK-MED ONCE .ROUTE Last administered on 21:20; Start 11/22/16 at 21:07; Stop 11/22/16 at 21:08; Status DC Ondansetron HCl (Zofran) 4 mg PRN Q6HRS PRN IV NAUSEA/VOMITING; Start 11/23/16 at 02:45; Stop 11/23/16 at 10:47; Status DC Active Scripts Active Reported Depakote (Divalproex Sodium) 500 Mg Tablet.dr 1 Tab PO HS Depakote Er (Divalproex Sodium) 500 Mg Tab.er.24h 1 Tab PO DAILY Risperidone 2 Mg Tablet 1 Tab PO BID Lamictal (Lamotrigine) 25 Mg Tablet 1 Tab PO DAILY Patient Instructions Patient Instuctions The patient was counseled about the risk of injecting these drugs intravenously and advised to stop medication GILBERT LOPEZ MD Nov 23, 2016 14:58
== END 2016-11-23 10:46 | disposition home or self-care (01) | DRG 682 ==
LOC: ER 16:40 → ICU 18:35 → ER 18:35
PROVIDERS: ADMIT Internal Medicine; ATTEND Internal Medicine
DX: N17.0 Acute kidney failure with tubular necrosis (principal); G92 Toxic encephalopathy; M62.82 Rhabdomyolysis; E87.6 Hypokalemia; E86.0 Dehydration; F17.210 Nicotine dependence, cigarettes, uncomplicated; R00.0 Tachycardia, unspecified; F19.10 Other psychoactive substance abuse, uncomplicated; Z88.8 Allergy status to other drugs, medicaments and biological substances
CPT/HCPCS: 36415; 80048; 80053; 81001; 82550; 82553; 83735; 84484; 85007; 85027; 87641; 93005; 96361; 96374; 96375; 96376; G0481; J0780; J2060; J2405; J3475; 99285-25; J7030